=== PATIENT | male | born 1995 | race Caucasian/White ===

== ENCOUNTER 2017-02-13 05:39 | Outpatient (CLI) | payer OTHER ==
[~2017-02-13] VITALS: Ht 190.5 cm; Wt 88.5 kg
== END 2017-02-13 14:51 ==
LOC: PREOP 05:39
PROVIDERS: ATTEND Surgery
DX: Z01.818 Encounter for other preprocedural examination; R63.4 Abnormal weight loss; R19.7 Diarrhea, unspecified

== ENCOUNTER 2017-02-17 11:35 | Day surgery (SDC) | payer OTHER ==
[~2017-02-17] VITALS: Ht 190.5 cm; Wt 88.5 kg
--- OUTSIDE RECORDS SUMMARY | 2017-02-17 11:37 | XMS REPORT ---
Author Author [facility] Organization [facility] Address [address] [facility] [address] [place], [place] [id number] Care Team Providers Care Compliance Spec Name Role Phone PCP Unavailable Allergies and Adverse Reactions Name Reaction Notes NO KNOWN DRUG ALLERGIES Plan of Treatment Not available. Medications Active Name Start Date Estimated Completion Date SIG Comments Protonix oral tablet,delayed release (DR/EC) 40 mg take 1 tablet (40 mg ) by oral route once daily Problem List Description Status Onset GERD (gastroesophageal reflux disease) Active Abdominal pain, RUQ Active Vital Signs Date Time BP-Sys(mm[Hg] BP-Nini(mm[Hg]) HR(bpm) RR(rpm) Temp WT HT HC BMI BSA BMI Percentile O2 Sat(%) 11/09/2014 11:35:00 AM 100 mmHg 60 mmHg 64 bpm 18 rpm 98.4 F 187 lbs 75 in 23.37 kg/m2 2.12 m2 65.3 % 98 % 07/25/2014 2:36:00 PM 110 mmHg 80 mmHg 86 bpm 16 rpm 98 F 183 lbs 75 in 22.8732 kg/m 2.0958 m 61.8 % 98 % 07/11/2014 1:44:00 PM 108 mmHg 76 mmHg 60 bpm 16 rpm 96.9 F 190 lbs 75 in 23.75 kg/m2 2.14 m2 71.2 % 99 % Social History Name Description Comments Tobacco Never smoker History of Procedures Date Ordered Description Order Status 07/11/2014 12:00 AM ECHO EXAM OF ABDOMEN Returned 07/11/2014 12:00 AM COMPLETE CBC AUTOMATED Returned 07/11/2014 12:00 AM COMPREHEN METABOLIC PANEL Returned 07/11/2014 12:00 AM ASSAY OF AMYLASE Returned 07/11/2014 12:00 AM ASSAY OF LIPASE Returned 07/12/2014 12:00 AM HEPATOBILIARY SYSTEM IMAGING Returned Results Summary Data and Description Results 07/11/2014 3:00 PM GLUCOSE 83.0 mg/dLSODIUM 138.0 mmol/LPOTASSIUM 4.40 mmol/ LCHLORIDE 101.0 mmol/LCO2 26.0 mmol/LBUN 13.0 mg/dLCREATININE 1.10 mg/dLSGOT/ AST 25.0 IU/LSGPT/ALT 17.0 IU/LALK PHOS 125.0 IU/LTOTAL PROTEIN 7.30 g/ dLALBUMIN 4.80 g/dLTOTAL BILI 0.90 mg/dLCALCIUM 9.60 mg/dLeGFR >60 mL/min/1.73 m2WBC 6.7 RBC 5.04 HGB 15.60 g/dLHCT 45.0 %MCV 89.0 fLMCH 31.0 pgMCHC 34.70 g/ dLRDW CV 12.0 %MPV 9.70 fLPLT 193 %NEUT 42.90 %%LYMP 47.40 %%MONO 6.70 %%EOS 1.80 %%BASO 1.20 %#NEUT 2.88 #LYMP 3.18 #MONO 0.45 #EOS 0.12 #BASO 0.08 LIPASE 18.0 U/LAMYLASE 37 IU/L History Of Immunizations Not available. History of Past Illness Name Date of Onset Comments Asthma Bronchitis Dizziness GERD (gastroesophageal reflux disease) Gastric Ulcer Abdominal pain, RUQ Nausea & vomiting Jul 11 2014 1:48PM Abdominal Pain, Right Upper Quadrant Jul 11 2014 1:48PM Abdominal pain; epigastric Jul 11 2014 1:48PM GERD (gastroesophageal reflux disease) Jul 12 2014 2:42PM Abdominal pain, RUQ Jul 12 2014 2:42PM Postoperative Follow-up: Cholecystectomy Jul 25 2014 2:39PM Contact Dermatitis Nov 09 2014 11:36AM Payers Insurance Name Company Name Plan Name Plan Number Policy Number Policy Group Number Start Date [employer] [place] [employer] [place] [id number] N/A History of Encounters Visit Date Visit Type Provider 11/09/2014 Office visit RK FINNEGAN 07/25/2014 Office visit Rk Coleman MD 07/15/2014 [facility] Rk Coleman MD 07/11/2014 Office visit Rk Coleman MD 04/24/2013 [facility] Bev Batres MD
--- OUTSIDE RECORDS SUMMARY | 2017-02-17 11:38 | XMS REPORT ---
Author RK Hermosillo [facility] Address [address] [place], [place] [id number] Care Team Providers Care Candle Molder Name Role Phone RK DEGROOT PCP Unavailable RK DEGROOT PreferredProvider Unavailable Allergies and Adverse Reactions Name Reaction Notes NO KNOWN DRUG ALLERGIES Plan of Treatment Not available. Medications Active Name Start Date Estimated Completion Date SIG Comments Protonix 40 mg oral tablet,delayed release (DR/EC) take 1 tablet (40 mg ) by oral route once daily promethazine-codeine 6.25-10 mg/5 mL oral syrup 05/09/2015 take 5 milliliters by oral route every 4-6 hours as needed, not to exceed 30 mL in 24 hours fluticasone 50 mcg/actuation nasal spray,suspension 10/26/2015 inhale 1 spray (50 mcg) in each nostril by intranasal route 2 times per day Problem List Description Status Onset GERD (gastroesophageal reflux disease) Active Abdominal Pain, RUQ Active Pityriasis Rosea Active 09/30/2016 Fatigue, unspecified type Active 02/10/2017 History of cholecystectomy Active 02/10/2017 Intractable vomiting with nausea, unspecified vomiting type Active 02/10/2017 Vital Signs Date Time BP-Sys(mm[Hg] BP-Nini(mm[Hg]) HR(bpm) RR(rpm) Temp WT HT HC BMI BSA BMI Percentile O2 Sat(%) 02/10/2017 7:51:00 AM 122 mmHg 64 mmHg 106 bpm 16 rpm 97 F 199 lbs 75 in 24.87 kg/m2 2.19 m2 0 % 98 % 09/26/2016 2:54:00 PM 118 mmHg 70 mmHg 70 bpm 16 rpm 97 F 225 lbs 74 in 28.888 kg/m 2.3084 m 0 % 97 % 10/26/2015 1:24:00 PM 120 mmHg 80 mmHg 85 bpm 18 rpm 98.2 F 208 lbs 74 in 26.71 kg/m2 2.22 m2 85.5 % 98 % 05/08/2015 1:08:00 PM 110 mmHg 72 mmHg 88 bpm 18 rpm 98 F 205 lbs 75 in 25.623 kg/m 2.2182 m 81.4 % 98 % 04/26/2015 1:17:00 PM 115 mmHg 80 mmHg 60 bpm 18 rpm 98.6 F 203 lbs 74.5 in 25.71 kg/m2 2.20 m2 82.1 % 98 % 11/09/2014 11:35:00 AM 100 mmHg 60 mmHg 64 bpm 18 rpm 98.4 F 187 lbs 75 in 23.3732 kg/m 2.1186 m 65.3 % 98 % 07/25/2014 2:36:00 PM 110 mmHg 80 mmHg 86 bpm 16 rpm 98 F 183 lbs 75 in 22.87 kg/m2 2.10 m2 61.8 % 98 % 07/11/2014 1:44:00 PM 108 mmHg 76 mmHg 60 bpm 16 rpm 96.9 F 190 lbs 75 in 23.7481 kg/m 2.1355 m 71.2 % 99 % Social History Name Description Comments Tobacco Never smoker Alcohol Never Uses seatbelts Current every day Exercises regularly Current every day History of Procedures Date Ordered Description Order Status 04/26/2015 12:00 AM PMRV Drug Screen Collection Reviewed 05/08/2015 12:00 AM Decadron, Per 1 Mg [facility]# [address]-07 Reviewed 05/08/2015 12:00 AM Depo-Medrol, Per 80 Mg [facility]#2857-3902-89 Reviewed 05/08/2015 12:00 AM Rocephin 1 gram [facility]#6536-7132-67 Reviewed 10/26/2015 12:00 AM Decadron, Per 1 Mg [facility]# [address]-28 Reviewed 10/26/2015 12:00 AM Depo-Medrol, Per 80 Mg [facility]#6138-4914-95 Reviewed 07/11/2014 12:00 AM ECHO EXAM OF ABDOMEN Reviewed 07/11/2014 12:00 AM COMPLETE CBC AUTOMATED Reviewed 07/11/2014 12:00 AM COMPREHEN METABOLIC PANEL Reviewed 07/11/2014 12:00 AM ASSAY OF AMYLASE Reviewed 07/11/2014 12:00 AM ASSAY OF LIPASE Reviewed 07/12/2014 12:00 AM HEPATOBILIARY SYSTEM IMAGING Reviewed 11/09/2014 12:00 AM THER/PROPH/DIAG INJ SC/IM Reviewed 11/09/2014 12:00 AM Decadron, Per 1 Mg [facility]# [address]-78 Reviewed 11/09/2014 12:00 AM Depo-Medrol, Per 80 Mg [facility]#1809-8613-87 Reviewed Results Summary Date and Description Results 07/11/2014 3:00 PM GLUCOSE 83.0 mg/dLSODIUM 138.0 mmol/LPOTASSIUM 4.40 mmol/ LCHLORIDE 101.0 mmol/LCO2 26.0 mmol/LBUN 13.0 mg/dLCREATININE 1.10 mg/dLSGOT/ AST 25.0 IU/LSGPT/ALT 17.0 IU/LALK PHOS 125.0 IU/LTOTAL PROTEIN 7.30 g/ dLALBUMIN 4.80 g/dLTOTAL BILI 0.90 mg/dLCALCIUM 9.60 mg/dLAGE 18 GFR NonAA 87 GFR AA 105 eGFR >60 mL/min/1.73 m2eGFR AA* >60 WBC 6.7 RBC 5.04 HGB 15.60 g/ dLHCT 45.0 %MCV 89.0 fLMCH 31.0 pgMCHC 34.70 g/dLRDW SD 39 RDW CV 12.0 %MPV 9.70 fLPLT 193 NRBC# 0.00 NRBC% 0.0 %NEUT 42.90 %%LYMP 47.40 %%MONO 6.70 %%EOS 1.80 %%BASO 1.20 %#NEUT 2.88 #LYMP 3.18 #MONO 0.45 #EOS 0.12 #BASO 0.08 MANUAL DIFF NOT IND LIPASE 18.0 U/LAMYLASE 37 IU/L History Of Immunizations Not available. History of Past Illness Name Date of Onset Comments Asthma Bronchitis Dizziness GERD (gastroesophageal reflux disease) Gastric ulcer Abdominal Pain, RUQ Pityriasis Rosea 09/30/2016 Fatigue, unspecified type 02/10/2017 History of cholecystectomy 02/10/2017 Intractable vomiting with nausea, unspecified vomiting type 02/10/2017 Nausea & vomiting Jul 11 2014 1:48PM Abdominal Pain, Right Upper Quadrant Jul 11 2014 1:48PM Abdominal pain; epigastric Jul 11 2014 1:48PM GERD (gastroesophageal reflux disease) Jul 12 2014 2:42PM Abdominal pain, RUQ Jul 12 2014 2:42PM Postoperative Follow-up: Cholecystectomy Jul 25 2014 2:39PM Contact Dermatitis Nov 09 2014 11:36AM Encounter for drug screening Apr 26 2015 1:20PM General Medical Exam, Adult Apr 26 2015 1:18PM Moderate Acute Cough May 08 2015 1:10PM Upper respiratory tract infection, unspecified upper respiratory infection May 08 2015 1:10PM Moderate Acute Respiratory System And Chest Symptoms May 08 2015 1:10PM Moderate Acute Nasal congestion Oct 26 2015 1:24PM Moderate Acute Sinus congestion Oct 26 2015 1:24PM Pityriasis Rosea Sep 26 2016 2:55PM Fatigue, unspecified type Feb 10 2017 7:51AM Emesis, persistent Feb 10 2017 7:51AM Intractable vomiting with nausea, unspecified vomiting type Feb 10 2017 7: 51AM Weight loss, non-intentional Feb 10 2017 7:51AM History of cholecystectomy Feb 10 2017 7:51AM Payers Insurance Name Company Name Plan Name Plan Number Policy Number Policy Group Number Start Date [employer] [id number] N/A [employer] [place] State Plan [employer] [place] State Plan [id number] N/A [facility] PMRV PHYS/DS PMRVPHYS DS N/A History of Encounters Visit Date Visit Type Provider 02/10/2017 Office visit RK FINNEGAN 09/26/2016 Office visit RK FINNEGAN 10/26/2015 Office visit RK FINNEGAN 05/08/2015 Office visit RK FINNEGAN 04/26/2015 Office visit RK FINNEGAN 11/09/2014 Office visit 11/09/2014 Office visit RK FINNEGAN 07/25/2014 Office visit Rk Coleman MD 07/15/2014 [facility] Rk Coleman MD 07/11/2014 Office visit Rk Coleman MD 04/24/2013 [facility] Bev Batres MD
--- OUTSIDE RECORDS SUMMARY | 2017-02-17 11:38 | XMS REPORT ---
Author Author RK DEGROOT [facility] Address [address] [address] [place], [place] [address] Care Team Providers Care Ice Skating Teacher Name Role Phone RK DEGROOT PCP Unavailable Allergies and Adverse Reactions Name Reaction Notes NO KNOWN DRUG ALLERGIES Plan of Treatment Not available. Medications Active Name Start Date Estimated Completion Date SIG Comments Protonix 40 mg oral tablet,delayed release (DR/EC) take 1 tablet (40 mg ) by oral route once daily Problem List Description Status Onset GERD (gastroesophageal reflux disease) Active Abdominal Pain, RUQ Active Vital Signs Date Time BP-Sys(mm[Hg] BP-Nini(mm[Hg]) HR(bpm) RR(rpm) Temp WT HT HC BMI BSA BMI Percentile O2 Sat(%) 04/26/2015 1:17:00 PM 115 mmHg 80 mmHg [...] 07/12/2014 12:00 AM HEPATOBILIARY SYSTEM IMAGING Returned 11/09/2014 12:00 AM THER/PROPH/DIAG INJ SC/IM Reviewed 11/09/2014 12:00 AM Decadron, Per 1 Mg [facility]# [address]-22 Reviewed 11/09/2014 12:00 AM Depo-Medrol, Per 80 Mg [facility]#3137-2511-69 Reviewed Results Summary Data and Description Results 07/11/2014 [...] reflux disease) Gastric ulcer Abdominal Pain, RUQ Nausea & vomiting Jul 11 2014 [...] Medical Exam, Adult Apr 26 2015 1:18PM Payers Insurance Name Company Name Plan Name Plan Number Policy Number Policy Group Number Start Date [employer] [place] Plan [employer] [place] Plan [id number] N/A [facility] PMRV PHYS/DS PMRVPHYS DS N/A History of Encounters Visit Date Visit Type Provider 04/26/2015 Office visit RK FINNEGAN 11/09/2014 Office visit RK FINNEGAN 07/25/2014 Office visit Rk Coleman MD 07/15/2014 [facility] Rk Coleman MD 07/11/2014 Office visit Rk Coleman MD 04/24/2013 [facility] Bev Batres MD
--- OUTSIDE RECORDS SUMMARY | 2017-02-17 11:38 | XMS REPORT ---
Author Author RK DEGROOT [facility] Address [address] [place], [place] [address] Care Team Providers Care Halal Meat Packer Name Role Phone RK DEGROOT PCP Unavailable RK DEGROOT PreferredProvider Unavailable Allergies and Adverse Reactions Name Reaction Notes NO KNOWN DRUG ALLERGIES Plan of Treatment Planned Activity Comments Planned Date Planned Time Plan/Goal CBC with Differential 02/10/2017 12:00 AM CMP 02/10/2017 12:00 AM Celiac disease antibody panel 02/10/2017 12:00 AM SED RATE 02/10/2017 12:00 AM CRP 02/10/2017 12:00 AM MATEUS W/REFLEX 02/10/2017 12:00 AM Thyroid function panel 02/10/2017 12:00 AM Thyroid function panel 02/10/2017 12:00 AM Medications Active Name Start Date Estimated Completion [...] 05/08/2015 12:00 AM Decadron, Per 1 Mg [facility]# [address]-93 Reviewed 05/08/2015 12:00 AM Depo-Medrol, Per 80 Mg [facility]#9349-1180-59 Reviewed 05/08/2015 12:00 AM Rocephin 1 gram [facility]#0587-7586-12 Reviewed 10/26/2015 12:00 AM Decadron, Per 1 Mg [facility]# [address]-94 Reviewed 10/26/2015 12:00 AM Depo-Medrol, Per 80 Mg [facility]#2070-1274-06 Reviewed 02/10/2017 12:00 AM ROUTINE VENIPUNCTURE Reviewed 07/11/2014 12:00 AM ECHO EXAM OF ABDOMEN Reviewed 07/11/2014 12:00 AM COMPLETE CBC AUTOMATED Reviewed 07/11/2014 12:00 AM COMPREHEN METABOLIC PANEL Reviewed 07/11/2014 12:00 AM ASSAY OF AMYLASE Reviewed 07/11/2014 12:00 AM ASSAY OF LIPASE Reviewed 07/12/2014 12:00 AM HEPATOBILIARY SYSTEM IMAGING Reviewed 11/09/2014 12:00 AM THER/PROPH/DIAG INJ SC/IM Reviewed 11/09/2014 12:00 AM Decadron, Per 1 Mg [facility]# [address]-29 Reviewed 11/09/2014 12:00 AM Depo-Medrol, Per 80 Mg [facility]#2308-5841-56 Reviewed Results Summary Date and Description Results [...] History of cholecystectomy Feb 10 2017 7:51AM Weight loss Feb 10 2017 10:45AM Diarrhea Feb 10 2017 10:45AM Payers Insurance Name Company Name Plan Name Plan Number Policy Number Policy Group Number Start Date [employer] [id number] N/A [employer] [place] State Plan [employer] [place] State Plan [id number] N/A [facility] PMRV PHYS/DS PMRVPHYS DS N/A History of Encounters Visit Date Visit Type Provider 02/10/2017 Office visit RK FINNEGAN 09/26/2016 Office visit RK FINNEGAN 10/26/2015 Office visit RK FINNEGAN 05/08/2015 Office visit RK FINNEGAN 04/26/2015 Office visit RK FINNEGAN 11/09/2014 Office visit 11/09/2014 Office visit RK FINNEGAN 07/25/2014 Office visit Rk Coleman MD 07/15/2014 [facility] Rk Coleman MD 07/11/2014 Office visit Rk Coleman MD 04/24/2013 [facility] Bev Batres MD
--- OUTSIDE RECORDS SUMMARY | 2017-02-17 11:38 | XMS REPORT ---
Author RK Hermosillo [facility] Address [address] [place], [place] [address] Care Team Providers Care Clothing Room Supervisor Name Role Phone RK DEGROOT PCP Unavailable [...] by intranasal route 2 times per day fluticasone 50 mcg/actuation nasal spray,suspension 10/26/2015 inhale 1 spray (50 mcg) in each nostril by intranasal route 2 times per day Problem List Description Status Onset GERD (gastroesophageal reflux disease) Active Abdominal Pain, RUQ Active Vital Signs Date Time BP-Sys(mm[Hg] BP-Nini(mm[Hg]) HR(bpm) RR(rpm) Temp WT HT HC BMI BSA BMI Percentile O2 Sat(%) 10/26/2015 1:24:00 PM 120 mmHg 80 mmHg [...] 04/26/2015 12:00 AM PMRV Drug Screen Collection Returned 05/08/2015 12:00 AM Decadron, Per 1 Mg [facility]# [address]-10 Reviewed 05/08/2015 12:00 AM Depo-Medrol, Per 80 Mg [facility]#1971-7[address]-61 Reviewed 05/08/2015 12:00 AM Rocephin 1 gram [facility]#9190-9683-29 Reviewed 07/11/2014 12:00 AM ECHO EXAM OF ABDOMEN Returned 07/11/2014 12:00 AM COMPLETE CBC AUTOMATED Returned 07/11/2014 12:00 AM COMPREHEN METABOLIC PANEL Returned 07/11/2014 12:00 AM ASSAY OF AMYLASE Returned 07/11/2014 12:00 AM ASSAY OF LIPASE Returned 07/12/2014 12:00 AM HEPATOBILIARY SYSTEM IMAGING Returned 11/09/2014 12:00 AM THER/PROPH/DIAG INJ SC/IM Reviewed 11/09/2014 12:00 AM Decadron, Per 1 Mg [facility]# [address]-44 Reviewed 11/09/2014 12:00 AM Depo-Medrol, Per 80 Mg [facility]#8223-7057-05 Reviewed Results Summary Data and Description Results [...] Acute Sinus congestion Oct 26 2015 1:24PM Payers Insurance Name Company Name Plan Name Plan Number Policy Number Policy Group Number Start Date [employer] [place] Plan [employer] [place] Plan [id number] N/A [facility] PMRV PHYS/DS PMRVPHYS DS N/A History of Encounters Visit Date Visit Type Provider 10/26/2015 Office visit RK FINNEGAN 05/08/2015 Office visit RK FINNEGAN 04/26/2015 Office visit RK FINNEGAN 11/09/2014 Office visit 11/09/2014 Office visit RK FINNEGAN 07/25/2014 Office visit Rk Coleman MD 07/15/2014 [facility] Rk Coleman MD 07/11/2014 Office visit Rk Coleman MD 04/24/2013 [facility] Bev Batres MD
--- OUTSIDE RECORDS SUMMARY | 2017-02-17 11:39 | XMS REPORT | Continuity of Care Document ---
Author Author [facility] Organization [facility] Address Unknown Phone Unavailable Allergies Active Description Code Type Severity Reaction Onset Reported/Identified Relationship to Patient Clinical Status Yes No known allergies Drug N/A N/A Yes No known drug allergies [id number] ND N/A N/A Confirmed or Verified Medications Problems Date Dx Coded Attending Type Code Diagnosis Diagnosed By 02/14/2014 ELSIE ZUNIGA 719.46 JOINT PAIN-L/LEG 02/14/2014 ELSIE ZUNIGA 959.7 LOWER LEG INJURY NOS 02/14/2014 ELSIE ZUNIGA E007.0 ACTIV-AMER TACK FOOTBALL Procedures Code [place] [address] X-RAY EXAM OF KNEE, 3 02/14/2014 Results Encounters ACCT No. Visit Date/Time Discharge Status Pt. Type Provider Facility Loc./Unit Complaint [id number] 06/20/2016 10:53:03 ACT Unknown [id number] 10/03/2016 14:36:36 2016 23:59:59 CLS Outpatient ELSIE ZUNIGA [facility] J[place] [id number] 05/07/2015 16:17:00 05/07/2015 17 :15:00 DIS Emergency SHERYL CABRERA [facility] EMR [id number] 02/14/2014 10:19:00 02/14/2014 10 :19:00 DIS Outpatient ELSIE ZUNIGA [facility] EFC [id number] 02/10/2017 08:39:23 02/10/2017 23: 59:59 CLS Outpatient CHRISTOPH DEGROOT [id number] 10/02/2016 10:56:47 10/02/2016 23: 59:59 CLS Outpatient CHRISTOPH DEGROOT [id number] 05/08/2015 11:37:07 05/08/2015 23: 59:59 CLS Outpatient CHRISTOPH DEGROOT [id number] 04/26/2015 09:46:12 04/26/2015 23: 59:59 CLS Outpatient CHRISTOPH DEGROOT [id number] 01/02/2015 21:58:11 01/02/2015 23: 59:59 [facility] Outpatient CHRISTOPH DEGROOT [id number] 05/27/2013 19:59:55 05/27/2013 23: 59:59 CLS Outpatient Bev Batres
--- OUTSIDE RECORDS SUMMARY | 2017-02-17 11:39 | XMS REPORT ---
Author RK Hermosillo [facility] Address [address] [place], [place] [address] Care Team Providers Care Water Reclamation Systems Operator Name Role Phone RK DEGROOT PCP Unavailable [...] Pain, RUQ Active Pityriasis Rosea Active 09/30/2016 Vital Signs Date Time BP-Sys(mm[Hg] BP-Nini(mm[Hg]) HR(bpm) RR(rpm) Temp WT HT HC BMI BSA BMI Percentile O2 Sat(%) 09/26/2016 2:54:00 PM 118 mmHg 70 mmHg 70 bpm 16 rpm 97 F 225 lbs 74 in 28.89 kg/m2 2.31 m2 0 % 97 % 10/26/2015 1:24:00 PM 120 mmHg 80 mmHg 85 bpm 18 rpm 98.2 F 208 lbs 74 in 26.7053 kg/m 2.2195 m 85.5 % 98 % 05/08/2015 1:08:00 PM 110 mmHg 72 mmHg 88 bpm 18 rpm 98 F 205 lbs 75 in 25.62 kg/m2 2.22 m2 81.4 % 98 % 04/26/2015 1:17:00 PM 115 mmHg 80 mmHg 60 bpm 18 rpm 98.6 F 203 lbs 74.5 in 25.7147 kg/m 2.2 m 82.1 % 98 % 11/09/2014 11:35:00 AM [...] 05/08/2015 12:00 AM Decadron, Per 1 Mg [facility]# [address]-39 Reviewed 05/08/2015 12:00 AM Depo-Medrol, Per 80 Mg [facility]#1080[address]-93 Reviewed 05/08/2015 12:00 AM Rocephin 1 gram [facility]#5251-3582-24 Reviewed 10/26/2015 12:00 AM Decadron, Per 1 Mg [facility]# [address]-19 Reviewed 10/26/2015 12:00 AM Depo-Medrol, Per 80 Mg [facility]#2383-0032-72 Reviewed 07/11/2014 12:00 AM ECHO EXAM OF ABDOMEN Reviewed 07/11/2014 12:00 AM COMPLETE CBC AUTOMATED Reviewed 07/11/2014 12:00 AM COMPREHEN METABOLIC PANEL Reviewed 07/11/2014 12:00 AM ASSAY OF AMYLASE Reviewed 07/11/2014 12:00 AM ASSAY OF LIPASE Reviewed 07/12/2014 12:00 AM HEPATOBILIARY SYSTEM IMAGING Reviewed 11/09/2014 12:00 AM THER/PROPH/DIAG INJ SC/IM Reviewed 11/09/2014 12:00 AM Decadron, Per 1 Mg [facility]# [address]-68 Reviewed 11/09/2014 12:00 AM Depo-Medrol, Per 80 Mg [facility]#1482-2878-90 Reviewed Results Summary Data and Description Results [...] ulcer Abdominal Pain, RUQ Pityriasis Rosea 09/30/2016 Nausea & vomiting Jul 11 2014 1:48PM [...] 1:24PM Pityriasis Rosea Sep 26 2016 2:55PM Payers Insurance Name Company Name Plan Name Plan Number Policy Number Policy Group Number Start Date [employer] [id number] N/A [employer] [place] [employer] [place] [id number] N/A [facility] PMRV PHYS/DS PMRVPHYS DS N/A History of Encounters Visit Date Visit Type Provider 09/26/2016 Office visit RK FINNEGAN 10/26/2015 Office visit RK FINNEGAN 05/08/2015 Office visit RK FINNEGAN 04/26/2015 Office visit RK FINNEGAN 11/09/2014 Office visit 11/09/2014 Office visit RK FINNEGAN 07/25/2014 Office visit Rk Coleman MD 07/15/2014 [facility] Rk Coleman MD 07/11/2014 Office visit Rk Coleman MD 04/24/2013 [facility] Bev Batres MD
--- OUTSIDE RECORDS SUMMARY | 2017-02-17 11:39 | XMS REPORT ---
Author Author RK DEGROOT [facility] Address [address] [facility] [address] [place], [place] [address] Care Team Providers Care Fashion Editor Name Role Phone RK DEGROOT PCP Unavailable [...] 11/09/2014 12:00 AM Decadron, Per 1 Mg [facility]# [address]-38 Reviewed 11/09/2014 12:00 AM Depo-Medrol, Per 80 Mg [facility]#8954-4803-31 Reviewed Results Summary Data and Description Results [...] Number Policy Group Number Start Date [employer] [place] State Plan [employer] [place] State Plan [id number] N/A [facility] PMRV PHYS/DS PMRVPHYS DS N/A History of Encounters Visit Date Visit Type Provider 04/26/2015 Office visit RK FINNEGAN 11/09/2014 Office visit RK FINNEGAN 07/25/2014 Office visit Rk Coleman MD 07/15/2014 [facility] Rk Coleman MD 07/11/2014 Office visit Rk Coleman MD 04/24/2013 [facility] Bev Batres MD
--- OUTSIDE RECORDS SUMMARY | 2017-02-17 11:39 | XMS REPORT ---
Author Author RK DEGROOT [facility] Address [address] [facility] [address] [place], [place] [address] Care Team Providers Care Salvage Worker Name Role Phone RK DEGROOT PCP Unavailable [...] to exceed 30 mL in 24 hours Problem List Description Status Onset GERD (gastroesophageal reflux disease) Active Abdominal Pain, RUQ Active Vital Signs Date Time BP-Sys(mm[Hg] BP-Nini(mm[Hg]) HR(bpm) RR(rpm) Temp WT HT HC BMI BSA BMI Percentile O2 Sat(%) 05/08/2015 1:08:00 PM 110 mmHg 72 mmHg [...] 12:00 AM PMRV Drug Screen Collection Returned 07/11/2014 12:00 AM ECHO EXAM OF ABDOMEN Returned 07/11/2014 12:00 AM COMPLETE CBC AUTOMATED Returned 07/11/2014 12:00 AM COMPREHEN METABOLIC PANEL Returned 07/11/2014 12:00 AM ASSAY OF AMYLASE Returned 07/11/2014 12:00 AM ASSAY OF LIPASE Returned 07/12/2014 12:00 AM HEPATOBILIARY SYSTEM IMAGING Returned 11/09/2014 12:00 AM THER/PROPH/DIAG INJ SC/IM Reviewed 11/09/2014 12:00 AM Decadron, Per 1 Mg [facility]# [address]-87 Reviewed 11/09/2014 12:00 AM Depo-Medrol, Per 80 Mg [facility]#2757-4691-30 Reviewed Results Summary Data and Description Results [...] And Chest Symptoms May 08 2015 1:10PM Payers Insurance Name Company Name Plan Name Plan Number Policy Number Policy Group Number Start Date [employer] [place] State Plan [employer] [place] State Plan [id number] N/A [facility] PMRV PHYS/DS PMRVPHYS DS N/A History of Encounters Visit Date Visit Type Provider 05/08/2015 Office visit RK FINNEGAN 04/26/2015 Office visit RK FINNEGAN 11/09/2014 Office visit RK FINNEGAN 07/25/2014 Office visit Rk Coleman MD 07/15/2014 [facility] Rk Coleman MD 07/11/2014 Office visit Rk Coleman MD 04/24/2013 [facility] Bev Batres MD
--- OUTSIDE RECORDS SUMMARY | 2017-02-17 11:39 | XMS REPORT ---
Author Author [facility] Medical Staff Organization [facility] Address [address] [place], [place] [id number] Phone [phone] Care Team Providers Care Aircraft Maintenance Technician Name Role Phone ELSIE ZUNIGA APRN PP [phone] Summary purpose TRANSITION OF CARE AUTO GENERATION Chief Complaint and Reason for Visit No authorized Reason for Visit (Admitting Diagnosis) is available for this visit. Problem list No authorized problems tracked for continuity of care are available for this visit. Encounters No authorized problems tracked for encounter diagnoses are available for this visit. Medications No medications recorded for this patient visit Allergies, adverse reactions, alerts Allergen Category Ingredient Status Reaction Severity Onset No known drug allergies No known drug allergies No known drug allergies Confirmed or Verified Immunizations No immunizations recorded for this patient visit Relevant diagnostic tests and/or laboratory data No authorized results are available for this patient visit History of procedures No procedures recorded for this patient visit. Functional status Functional Status Finding Observation Time Muscle Strength LLE 5 ROM full resist :30 Diet regular :30 Abdomen Appearance flat [id number] Abdomen non-tender :30 Griggs no [id number]:30 Urination normal :30 Quality sym/unlabored :30 Cough absent :30 Secretions no :30 Airway natural :30 Chest Tube no :30 Oxygen no [id number]:10 Temp >100.4 no :30 Temp <96.8 no :30 Chills with rigors no :30 HR > 90bpm no :30 Respirations > 20 no :30 Systolic <90 no :30 headache stiff neck no :30 Rapid Resp no :30 Nursing Note DC instructions reviewed, pt voiced understanding. No needs. Amb form unit in stable condition, mother at side. :12 Vital signs Type Value Date Respiration Rate 18breaths per minute :10 Pulse 59beats per minute :10 Oxygen Saturation 98% :10 BP Systolic 114mmHg :10 BP Diastolic 62mmHg :10 Temperature 97.4F :10 Height 74inches :20 Weight 207.2LB :20 Social history Type Value Smoking Status NEVER SMOKER Treatment Plan No treatment plan text is available for this visit. Hospital discharge instructions Dismissal Condition good Disposition on DC home DC Inst/Educ Give yes Med/Side Effects Rev yes Flu Vac No
[2017-02-17] MEDS ORDERED: LACTATED RINGERS 1,000 ML IV STA (11:47)
[2017-02-17] MEDS ORDERED: LACTATED RINGERS 1,000 ML IV ONE (11:47)
[2017-02-17 11:55] VITALS: BP 123/72
[2017-02-17] MEDS ORDERED: proPOfol 200 MG/20 ML (DIPRIVAN) VIAL IV ONE (12:00)
[2017-02-17] MEDS ORDERED: HURRICAINE EXT TUBE (BENZOCAINE) XX PRN (12:00)
[2017-02-17] MEDS ORDERED: LIDOCAINE JELLY 2% (XYLOCAINE) 5 ML TUBE MM PRN (12:00)
[2017-02-17] MEDS ORDERED: fentaNYL INJECTION 100 MCG/2 ML AMP ONE (12:01)
[2017-02-17] MEDS ORDERED: MIDAZOLAM 2 MG/2 ML (VERSED) VIAL ONE (12:01)
--- NOTE | 2017-02-17 12:26 | Progress Note-Pre Operative ---
Pre-Operative Progress Note H&P Reviewed The H&P was reviewed, patient examined and no changes noted. Date Seen by Provider: Feb 17, 2017 Time Seen by Provider: 12: Date H&P Reviewed: Feb 17, 2017 Time H&P Reviewed: 12: Pre-Operative Diagnosis: n/v abnormal weight loss EVI CLAUDIO DO Feb 17, 2017 12:26 pm
[2017-02-17] MEDS ORDERED: HURRICAINE EXT TUBE (BENZOCAINE) ONE (12:38)
[2017-02-17 13:00] VITALS: BP 112/60
[2017-02-17] MEDS ORDERED: PANT40TA2 PO (13:29)
[2017-02-17 13:30] VITALS: BP 115/94
--- NOTE | 2017-02-17 13:30 | Discharge Inst-Simple/Standard ---
Discharge Inst-Standard Discharge Medications New, Converted or Re-Newed RX: Transmitted to Pharmacy Patient Instructions/Follow Up Plan of Care/Instructions/FU: 3 weeks Leah Activity as Tolerated: Yes Discharge Diet: Regular Diet (small frequent meals) EVI CLAUDIO DO Feb 17, 2017 13:30
[2017-02-17 13:45] VITALS: BP 115/94
--- NOTE | 2017-02-17 14:34 | Progress Note-Post Operative ---
Post-Operative Progess Note Surgeon (s)/Export Agent (s) Surgeon EVI CLAUDIO DO Export Agent: na Pre-Operative Diagnosis n/v abnormal weight loss Post-Operative Diagnosis gastritis, hiatal hernia Procedure & Operative Findings Date of Procedure 02/17/17 Procedure Performed/Findings egd c biopsies Anesthesia Type per manufacturing baker Estimated Blood Loss Estimated blood loss (mL): none Specimens/Packing Specimens Removed duodenum, antrum, ge junction EVI CLAUDIO DO Feb 17, 2017 14:34
--- NOTE | 2017-02-19 09:33 | OPERATIVE REPORT ---
DATE OF SERVICE: 02/17/2017 PREOPERATIVE DIAGNOSES: Nausea, vomiting, abnormal weight loss. POSTOPERATIVE DIAGNOSES: Gastritis, hiatal hernia. PROCEDURE: EGD with biopsies. SURGEON: Evi Lynn DO ANESTHESIA: Per OPTICAL ENGINEERING TECHNICIAN. ESTIMATED BLOOD LOSS: None. COMPLICATIONS: None. SPECIMEN: Duodenum, antrum and GE junction. INDICATIONS: The patient is a 21-year-old male who has had some abnormal weight loss and had almost daily nausea and vomiting. He was recommended to have EGD performed. He understands the risks and benefits of procedure and wished to proceed with the procedure. Consent was signed in the chart. PROCEDURE: The patient was taken to the endoscopy suite, placed in a left lateral recumbent position. Timeout was performed. Scope was inserted in mouth, down the esophagus, stomach and into the duodenum without difficulty. The duodenum ____ may be some slight irritation present, a biopsy of the duodenum was obtained. Scope was then slowly retracted back into the stomach, which had erythematous changes more so in the antrum. Biopsy of the antrum was obtained. There are no polyps, masses or ulcerations. Scope was retroflexed noting a small hiatal hernia. No other pathology. Scope was returned to its normal position, slowly withdrawn to the distal esophagus. A biopsy of the GE junction was obtained. Scope was slowly retracted back noting no other pathology at this time. The patient tolerated the procedure well without any complications and taken to recovery room in stable condition. RECOMMENDATIONS: The patient will follow up in approximately 3 weeks. We will have him on Protonix 40 mg daily and see how he is doing at that time and follow up on pathology. Job ID: [id number] DocumentID: [id number] Dictated Date: 02/17/2017 16:13:20 Hardboard Press Operator Date: 02/18/2017 06:10:45 Dictated By: EVI LYNN DO
== END 2017-02-17 13:40 | disposition home or self-care (01) ==
LOC: ENDO 11:35
PROVIDERS: ATTEND Surgery
DX: K29.70 Gastritis, unspecified, without bleeding (principal); K44.9 Diaphragmatic hernia without obstruction or gangrene